=== PATIENT | female | born 1990 | race Two or more races ===

== ENCOUNTER 2018-08-19 14:33 | Emergency (ER) | payer MEDICARE, MEDICAID ==
[~2018-08-19] VITALS: Ht 170.2 cm; Wt 55.3 kg
[~2018-08-19 14:33] MED LIST: ALPRAZOLAM0.25 MG ORAL; KEFLEX500 MG ORAL
--- NOTE | 2018-08-19 14:45 | NUR ---
ED Nurse Note: Patient c/o chills, diarrhea "all day" and headache since yesterday. patient is alert awake ambulatory, breathing unlabored and even, skin is warm to touch.
[2018-08-19 15:04] VITALS: BP 111/72
[2018-08-19] MEDS ORDERED: Dicyclomine HCl 10mg/5ml oral soln ORAL ONE (15:15)
[2018-08-19 15:37] LABS: BASOPHILS % (AUTO) 2.3 % (0.0-2.0); EOSINOPHILS % (AUTO) 1.9 % (0.0-3.0); HEMATOCRIT 41.7 % (37.0-47.0); HEMOGLOBIN 14.4 G/DL (12.0-16.0); LYMPHOCYTES % (AUTO) 34.7 % (20.0-45.0); MEAN CORPUSCULAR VOLUME 87 FL (80-99); MONOCYTES % (AUTO) 12.5 % (1.0-10.0); NEUTROPHILS % (AUTO) 48.6 % (45.0-75.0); PLATELET COUNT 223 K/UL (150-450); RED CELL DISTRIBUTION WIDTH 14.9 % (11.6-14.8); WHITE BLOOD COUNT 4.2 K/UL (4.8-10.8)
[2018-08-19 15:46] LABS: ANION GAP 13 mmol/L (5-15); BLOOD UREA NITROGEN 10 mg/dL (7-18); CALCIUM 9.2 MG/DL (8.5-10.1); CARBON DIOXIDE 23 MMOL/L (21-32); CHLORIDE 106 MMOL/L (98-107); CREATININE 0.8 MG/DL (0.55-1.30); POTASSIUM 3.6 MMOL/L (3.5-5.1); SODIUM 142 MMOL/L (136-145)
[2018-08-19] MEDS ORDERED: Dicyclomine 10mg Cap ORAL ONE (16:15)
--- NOTE | 2018-08-19 16:16 | Emergency Room Report ---
History of Present Illness General Chief Complaint: Diarrhea Source: Patient Present Illness HPI 27 YO Female Pt. presents to the ED c/o multiple episodes of diarrhea and abdominal cramping since early this am. Pt. reports initially dark /black looking stool and now with reddish color. denies Pmhx. took Pepto-bismol TWINE WINDER. denies ETOH or NSAID use. reports symptoms occurred after eating a frozen meal. Denies nausea or vomiting. pt. reports chills, and feeling weak. Denies recent travel or ill contacts. reports no pain between episodes of diarrhea. She reports moderate gurgling in the lower abdomen prior to diarrhea bouts. denies ill contacts with similar symptoms. denies suspicion of . Denies dizziness, syncope, CP, palpitations or GARCES. Allergies: Coded Allergies: No Known Allergies (Unverified , 04/01/14) Patient History Past Medical History: see triage record Past Surgical History: none Pertinent Family History: none Last Menstrual Period: 03/2018- Now: No Reviewed Nursing Documentation: PMH: Agreed; PSxH: Agreed Nursing Documentation-PMH Past Medical History: No History, Except For Hx Cardiac Problems: No - Lupus, Hx Hypertension: No Hx Pacemaker: No Hx Asthma: No Hx COPD: No Hx Diabetes: No Hx Cancer: No Hx Gastrointestinal Problems: No Hx Dialysis: No History Of Psychiatric Problem: Yes - Schizophrenia Hx Neurological Problems: No Hx Cerebrovascular Accident: No Hx Seizures: No Review of Systems All Other Systems: negative except mentioned in HPI Physical Exam Vital Signs Date Time Temp Pulse Resp B/P (MAP) Pulse Ox O2 Delivery O2 Flow Rate FiO2 08/19/18 14:39 98.2 86 15 109/81 (90) 96 Room Air Sp02 EP Interpretation: reviewed, normal General Appearance: no apparent distress, alert, GCS 15, non-toxic, thin Head: normocephalic, atraumatic Eyes: bilateral eye normal inspection, bilateral eye PERRL ENT: hearing grossly normal, normal voice Neck: full range of motion Respiratory: lungs clear, normal breath sounds, speaking full sentences Cardiovascular #1: regular rate, rhythm Gastrointestinal: normal bowel sounds, non tender, soft, no peritonitis, non- distended, no guarding Rectal: heme positive stool Musculoskeletal: back normal, gait/station normal, normal range of motion, non- tender Neurologic: alert, oriented x3, responsive, motor strength/tone normal, sensory intact, speech normal, grossly normal Psychiatric: judgement/insight normal Lymphatic: no adenopathy Medical Decision Making PA Attestation Dr. Rodas is my supervising Physician whom patient management has been discussed with. Diagnostic Impression: Primary Impression: Diarrhea Qualified Codes: R19.7 - Diarrhea, unspecified ER Course 27 YO Female Pt. presents to the ED c/o multiple episodes of diarrhea and abdominal cramping since early this am. Pt. reports initially dark /black looking stool and now with reddish color. denies Pmhx. took Pepto-bismol TWINE WINDER. denies ETOH or NSAID use. reports symptoms occurred after eating a frozen meal. Denies nausea or vomiting. pt. reports chills, and feeling weak. Denies recent travel or ill contacts. reports no pain between episodes of diarrhea. She reports moderate gurgling in the lower abdomen prior to diarrhea bouts. denies ill contacts with similar symptoms. denies suspicion of . Denies dizziness, syncope, CP, palpitations or GARCES. Ddx considered but are not limited to GE, colitis,infectious colitis, acute appy , SBO, Cyclical Vomiting secondary to THC, Vital signs: pt. is afebrile, H&PE are most consistent with possible colitis, Heme positive stool. no evidence to suggest acute abdomen on physical exam. ORDERS: -Urine Hcg: negative -CBC: WNL -BMP: WNL -Stool Culture : Pending ED INTERVENTIONS: -1000 NS iv hydration, -Bentyl 10mg PO x 2 - Mylanta - Pepcid DISCHARGE: At this time pt. is stable for d/c to home. Will provide printed patient care instructions, and any necessary prescriptions. Care plan and follow up instructions have been discussed with the patient prior to discharge. Labs Test 08/19/18 15:17 White Blood Count 4.2 K/UL (4.8-10.8) Red Blood Count 4.80 M/UL (4.20-5.40) Hemoglobin 14.4 G/DL (12.0-16.0) Hematocrit 41.7 % (37.0-47.0) Mean Corpuscular Volume 87 FL (80-99) Mean Corpuscular Hemoglobin 29.9 PG (27.0-31.0) Mean Corpuscular Hemoglobin Concent 34.4 G/DL (32.0-36.0) Red Cell Distribution Width 14.9 % (11.6-14.8) Platelet Count 223 K/UL (150-450) Mean Platelet Volume 5.1 FL (6.5-10.1) Neutrophils (%) (Auto) 48.6 % (45.0-75.0) Lymphocytes (%) (Auto) 34.7 % (20.0-45.0) Monocytes (%) (Auto) 12.5 % (1.0-10.0) Eosinophils (%) (Auto) 1.9 % (0.0-3.0) Basophils (%) (Auto) 2.3 % (0.0-2.0) Urine HCG, Qualitative Negative (NEGATIVE) Sodium Level 142 MMOL/L (136-145) Potassium Level 3.6 MMOL/L (3.5-5.1) Chloride Level 106 MMOL/L (98-107) Carbon Dioxide Level 23 MMOL/L (21-32) Anion Gap 13 mmol/L (5-15) Blood Urea Nitrogen 10 mg/dL (7-18) Creatinine 0.8 MG/DL (0.55-1.30) Estimat Glomerular Filtration Rate > 60 mL/min (>60) Glucose Level 86 MG/DL (74-106) Calcium Level 9.2 MG/DL (8.5-10.1) Last Vital Signs Date Time Temp Pulse Resp B/P (MAP) Pulse Ox O2 Delivery O2 Flow Rate FiO2 08/19/18 15:04 98.2 81 16 111/72 98 Room Air Status: improved Disposition: HOME, SELF-CARE Condition: Stable Scripts Ranitidine Hcl* (ZANTAC*) 150 Mg Tablet 150 MG ORAL TWICE A DAY for 7 Days, #14 TAB Prov: Chely Galindo 08/19/18 Dicyclomine Hcl* (DICYCLOMINE HCL*) 10 Mg Capsule 10 MG ORAL QID for loose stools, #16 CAP Prov: Chely Galindo 08/19/18 Metronidazole* (FLAGYL*) 500 Mg Tablet 500 MG ORAL BID for 7 Days, #14 TAB 0 Refills Prov: Chely Galindo 08/19/18 Ciprofloxacin Hcl* (CIPROFLOXACIN HCL*) 500 Mg Tablet 500 MG ORAL EVERY 12 HOURS, #14 TAB 0 Refills Prov: Chely Galindo 08/19/18 Referrals: NOT CHOSEN IPA/MD,REFERRING (PCP) Departure Forms: Return to Work Return to Work Date: Aug 23, 2018 Return to Full Activity: Aug 23, 2018 Patient Instructions: Diarrhea, Adult Additional Instructions: Take medications as directed. Follow up with a Primary Care Provider in 3-5 days, even if your symptoms have resolved. --Please review list of primary care clinics, if you do not already have a primary care provider Return sooner to ED if new symptoms occur, or current symptoms become worse. - Please note that this Emergency Department Report was dictated using [employer] qa system specialist technology software, occasionally this can lead to erroneous entry secondary to interpretation by the dictation equipment. Chely Galindo Aug 19, 2018 16:16
[2018-08-19] MEDS ORDERED: CIPROFLOXACIN500 M2 ORAL (16:24)
[2018-08-19] MEDS ORDERED: RANITIDINE HCL150 MG ORAL (16:24)
[2018-08-19] MEDS ORDERED: DICYCLOMINE HCL10 MG ORAL (16:24)
[2018-08-19] MEDS ORDERED: METRONIDAZOLE500 MG ORAL (16:24)
[2018-08-19 16:45] VITALS: BP 111/72
--- NOTE | 2018-08-19 16:45 | NUR ---
ER DISCHARGE NOTE: Patient is cleared to be discharged per [facility], pt is aox4, on room air, with stable vital signs. pt was given dc and prescription instructions, pt was able to verbalize understanding, pt id band and iv site removed without complications. pt is able to ambulate with steady gait. pt took all belongings.
== END 2018-08-19 16:45 | disposition home or self-care (01) ==
LOC: EMR 14:56
DX: R19.7 Diarrhea, unspecified (principal); F20.9 Schizophrenia, unspecified
CPT/HCPCS: 36415; 80048; 81025; 85025; 87045; 96360; 99284

== ENCOUNTER 2018-09-12 14:04 | Emergency (ER) | payer MEDICARE, MEDICAID ==
[~2018-09-12] VITALS: Ht 167.6 cm; Wt 54.4 kg
[~2018-09-12 14:04] MED LIST changes: +CIPROFLOXACIN500 M2 ORAL; +DICYCLOMINE HCL10 MG ORAL; +METRONIDAZOLE500 MG ORAL; +RANITIDINE HCL150 MG ORAL
[2018-09-12] MEDS ORDERED: NKM (14:12)
[2018-09-12] MEDS ORDERED: Metoclopramide 10mg/2ml Inj IVP ONE (14:15)
--- NOTE | 2018-09-12 14:15 | Emergency Room Report ---
History of Present Illness General Chief Complaint: Diarrhea Source: Patient Present Illness HPI 27-year-old female history of lupus in remission presents with diarrhea x3 days for episodes a day, watery nature, no abdominal pain, severity mild, no aggravating or alleviating factors, no nausea no vomiting, no chest pain, no shortness of breath, no fever/chills, patient presents for evaluation. She denies any recent travel, any recent antibiotic use. No blood in stool Allergies: Coded Allergies: No Known Allergies (Unverified , 04/01/14) Patient History Past Medical History: see triage record Now: No Reviewed Nursing Documentation: PMH: Agreed; PSxH: Agreed Nursing Documentation-PMH Hx Cardiac Problems: No - Lupus, Hx Hypertension: No Hx Pacemaker: No Hx Asthma: No Hx COPD: No Hx Diabetes: No Hx Cancer: No Hx Gastrointestinal Problems: No Hx Dialysis: No Hx Neurological Problems: No Hx Cerebrovascular Accident: No Hx Seizures: No Review of Systems Gastrointestinal: Reports: diarrhea; Denies: abdominal pain, nausea, vomiting All Other Systems: negative except mentioned in HPI Physical Exam Vital Signs Date Time Temp Pulse Resp B/P (MAP) Pulse Ox O2 Delivery O2 Flow Rate FiO2 09/12/18 14:10 98.2 88 18 110/81 (91) 98 Room Air Sp02 EP Interpretation: reviewed, normal General Appearance: well appearing, no apparent distress, alert Head: normocephalic, atraumatic Eyes: bilateral eye PERRL, bilateral eye EOMI ENT: uvula midline, moist mucus membranes Neck: supple, thyroid normal, supple/symm/no masses Respiratory: lungs clear, no respiratory distress, no retraction, no accessory muscle use Cardiovascular #1: normal peripheral pulses, regular rate, rhythm, no edema, no gallop, no murmur Gastrointestinal: non tender, soft, no guarding, no rebound Musculoskeletal: normal inspection Neurologic: alert, oriented x3 Psychiatric: mood/affect normal Skin: no rash, warm/dry Medical Decision Making Diagnostic Impression: Primary Impression: Diarrhea ER Course 27-year-old female presents with diarrhea x3 days, no aggravating leaving factors, patient with unremarkable abdominal exam, on the differential includes appendicitis, gastroenteritis, colitis, labs nonfocal, patient given strict abdominal return precautions, for appendicitis. Patient is tolerating p.o., disposition home with return precautions Laboratory Tests Test 09/12/18 14:29 White Blood Count 5.6 K/UL (4.8-10.8) Red Blood Count 4.39 M/UL (4.20-5.40) Hemoglobin 13.5 G/DL (12.0-16.0) Hematocrit 39.2 % (37.0-47.0) Mean Corpuscular Volume 89 FL (80-99) Mean Corpuscular Hemoglobin 30.8 PG (27.0-31.0) Mean Corpuscular Hemoglobin Concent 34.5 G/DL (32.0-36.0) Red Cell Distribution Width 11.4 % (11.6-14.8) L Platelet Count 211 K/UL (150-450) Mean Platelet Volume 5.6 FL (6.5-10.1) L Neutrophils (%) (Auto) 63.7 % (45.0-75.0) Lymphocytes (%) (Auto) 18.4 % (20.0-45.0) L Monocytes (%) (Auto) 11.4 % (1.0-10.0) H Eosinophils (%) (Auto) 5.0 % (0.0-3.0) H Basophils (%) (Auto) 1.4 % (0.0-2.0) Urine Color Pale yellow Urine Appearance Clear Urine pH 5 (4.5-8.0) Urine Specific [place] 1.005 (1.005-1.035) Urine Protein Negative (NEGATIVE) Urine Glucose (UA) Negative (NEGATIVE) Urine Ketones Negative (NEGATIVE) Urine Blood Negative (NEGATIVE) Urine Nitrite Negative (NEGATIVE) Urine Bilirubin Negative (NEGATIVE) Urine Urobilinogen Normal MG/DL (0.0-1.0) Urine Leukocyte Esterase Negative (NEGATIVE) Urine HCG, Qualitative Negative (NEGATIVE) Sodium Level 138 MMOL/L (136-145) Potassium Level 4.1 MMOL/L (3.5-5.1) Chloride Level 103 MMOL/L (98-107) Carbon Dioxide Level 28 MMOL/L (21-32) Anion Gap 7 mmol/L (5-15) Blood Urea Nitrogen 6 mg/dL (7-18) L Creatinine 0.9 MG/DL (0.55-1.30) Estimate Glomerular Filtration Rate > 60 mL/min (>60) Glucose Level 65 MG/DL (74-106) L Calcium Level 9.3 MG/DL (8.5-10.1) Total Bilirubin 0.4 MG/DL (0.2-1.0) Aspartate Amino Transferase (AST) 12 U/L (15-37) L Alanine Aminotransferase (ALT) 9 U/L (12-78) L Alkaline Phosphatase 48 U/L (46-116) Total Protein 8.1 G/DL (6.4-8.2) Albumin 4.1 G/DL (3.4-5.0) Globulin 4.0 g/dL Albumin/Globulin Ratio 1.0 (1.0-2.7) Lipase 240 U/L (73-393) Human Chorionic Gonadotropin, Quant 1 mIU/mL (1-6) Last Vital Signs Date Time Temp Pulse Resp B/P (MAP) Pulse Ox O2 Delivery O2 Flow Rate FiO2 09/12/18 14:10 98.2 88 18 110/81 (91) 98 Room Air Disposition: HOME, SELF-CARE Scripts L.acidoph & Paracasei,B.lactis (Probiotic) 1 Each Capsule 1 EACH PO DAILY, #14 CAP Prov: Mario Dunne MD 09/12/18 Patient Instructions: Diarrhea, Adult Additional Instructions: The patient was provided with discharge instructions, notified to follow-up with a primary care doctor and or specialist in the next 24-48 hours, and to return to the ED if they have worsening of their symptoms. Please note that this report is being documented using [employer] technology. This can lead to erroneous entry secondary to incorrect interpretation by the dictating instrument. Mario Dunne MD Sep 12, 2018 14:15
[2018-09-12 14:30] VITALS: BP 110/81
[2018-09-12] MEDS ORDERED: PROBIOTIC1 EAC6 PO (14:30)
--- NOTE | 2018-09-12 14:30 | NUR ---
ED Nurse Note: pt walked in due to diarrhe x 3 days, denies abdominal pain, pt denies wating new meals. pt seen by alfonso. will continue to monitor.
--- NOTE | 2018-09-12 14:42 | NUR ---
ED Nurse Note: iv stablished on pt left ac, blood drawn, pt able to give urine sample and was sent to lab. iv reglan given, ivf started. will continue to monitor
[2018-09-12 14:43] LABS: BASOPHILS % (AUTO) 1.4 % (0.0-2.0); HEMATOCRIT 39.2 % (37.0-47.0); HEMOGLOBIN 13.5 G/DL (12.0-16.0); LYMPHOCYTES % (AUTO) 18.4 % (20.0-45.0); MEAN CORPUSCULAR VOLUME 89 FL (80-99); MONOCYTES % (AUTO) 11.4 % (1.0-10.0); NEUTROPHILS % (AUTO) 63.7 % (45.0-75.0); PLATELET COUNT 211 K/UL (150-450); RED BLOOD COUNT 4.39 M/UL (4.20-5.40); RED CELL DISTRIBUTION WIDTH 11.4 % (11.6-14.8); WHITE BLOOD COUNT 5.6 K/UL (4.8-10.8)
[2018-09-12 14:46] LABS: APPEARANCE,URINE CLEAR; BILIRUBIN, URINE NEGATIVE (NEGATIVE); COLOR,URINE PALE YELLOW; GLUCOSE, URINE (UA) NEGATIVE (NEGATIVE); KETONES,URINE NEGATIVE (NEGATIVE); LEUKOCYTE ESTERASE ,URINE NEGATIVE (NEGATIVE); NITRITE,URINE NEGATIVE (NEGATIVE); PH,URINE 5 (4.5-8.0); PROTEIN,URINE NEGATIVE (NEGATIVE); UROBILINOGEN,URINE NORMAL MG/DL (0.0-1.0)
[2018-09-12 14:53] LABS: ANION GAP 7 mmol/L (5-15); BLOOD UREA NITROGEN 6 mg/dL (7-18); CALCIUM 9.3 MG/DL (8.5-10.1); CARBON DIOXIDE 28 MMOL/L (21-32); CHLORIDE 103 MMOL/L (98-107); CREATININE 0.9 MG/DL (0.55-1.30); POTASSIUM 4.1 MMOL/L (3.5-5.1); SODIUM 138 MMOL/L (136-145)
[2018-09-12 14:57] LABS: ALANINE AMINOTRANSFERASE 9 U/L (12-78); ALBUMIN 4.1 G/DL (3.4-5.0); ALKALINE PHOSPHATASE 48 U/L (46-116); ASPARTATE AMINO TRANSFERASE 12 U/L (15-37); BILIRUBIN,TOTAL 0.4 MG/DL (0.2-1.0)
[2018-09-12 15:15] VITALS: BP 110/70
== END 2018-09-12 15:15 | disposition home or self-care (01) ==
LOC: EMR 14:44
DX: R19.7 Diarrhea, unspecified (principal); M32.9 Systemic lupus erythematosus, unspecified
CPT/HCPCS: 36415; 80053; 81003; 81025; 83690; 84702; 85025; 96361; 96374; 99284; J2765

== ENCOUNTER 2019-08-05 23:01 | Inpatient (IN) | payer MEDICARE, MEDICAID ==
[~2019-08-05] VITALS: Ht 167.6 cm; Wt 56.7 kg
[~2019-08-05 23:01] MED LIST changes: +NKM; +PROBIOTIC1 EAC6 PO
[2019-08-05 23:27] VITALS: BP 124/82
--- NOTE | 2019-08-05 23:40 | Emergency Room Report ---
History of Present Illness General Chief Complaint: General Complaint Source: Patient Present Illness HPI Disclaimer: Please note that this report is being documented using [employer] technology. This can lead to erroneous entry secondary to incorrect interpretation by the dictating instrument. HPI: 20-year-old female with history of anxiety presents for evaluation of multiple complaints. She is concerned she may have high levels of vitamin A, that she may be a new onset diabetic or that she may have high cholesterol levels. She states she eats 2 eggs every other day and is concerned this may be too much. She originally presented complaining of tremulousness in the upper and lower extremities. Denies fever or chills. Denies cough, vomiting, diarrhea. She does not take vitamin A supplements or have a history of diabetes or hypercholesterolemia. She states there is a family history of both and is concerned. She originally denied a history of anxiety and stated she was not taking benzodiazepines though chart review states she she was previously prescribed Xanax. She states she does not recall this. Denies excessive caffeine intake. States she is hydrated and eating well otherwise. Denies changes in sleep pattern, depression, drug use, alcohol use, tobacco use or stimulant use. States this tapering she also started after eating a pear earlier today but has eaten pear multiple times and has no known food allergies. PMH: Anxiety PSH: Reviewed Allergies: Denies Social Hx: Denies alcohol, tobacco or drug use Allergies: Coded Allergies: No Known Allergies (Unverified , 04/01/14) COVID-19 Screening Contact w/high risk pt: No Recent Travel to affected area: No Experienced COVID-19 symptoms?: No COVID-19 Testing performed TERMITE CONTROL REPRESENTATIVE: No Patient History Last Menstrual Period: now Now: No Nursing Documentation-PMH Hx Cardiac Problems: No (Lupus, ) Hx Hypertension: No Hx Pacemaker: No Hx Asthma: No Hx COPD: No Hx Diabetes: Yes Hx Cancer: No Hx Gastrointestinal Problems: No Hx Dialysis: No Hx Neurological Problems: No Hx Cerebrovascular Accident: No Hx Seizures: No Review of Systems All Other Systems: negative except mentioned in HPI Physical Exam Vital Signs Date Time Temp Pulse Resp B/P (MAP) Pulse Ox O2 Delivery O2 Flow Rate FiO2 08/05/19 23:16 97.9 85 16 124/82 (96) 98 Room Air General: Awake and alert, anxious appearing, intermittent tremors HEENT: NC/AT. EOMI. anicteric sclera. No scleral injection. Pupils are 4 mm and reactive. Cardiovascular: RRR. S1 and S2 normal. No murmur appreciated Resp: Normal work of breathing. No cough, wheezing or crackles appreciated Skin: Intact. No abrasions, laceration or rash over the exposed skin MSK: Normal tone and bulk. Moving all extremities. No obvious deformity. Neuro: Awake and alert. Mentating appropriately. Medical Decision Making Diagnostic Impression: Primary Impression: Hyponatremia Additional Impression: Hypokalemia ER Course 28-year-old female presents for evaluation of tremors as well as concern for new onset diabetes, hypercholesterolemia and vitamin a toxicity secondary to her diet. Patient arrives with stable vital signs. She has intermittent tremors in the upper and lower extremities, is afebrile otherwise well- appearing though it seems to be a poor historian. Differential includes was not limited to dehydration, anxiety, malnutrition, anemia, drug use to name a few. Started metabolic infectious work-up and provide oral Ativan to help with tremors. 0100: Patient found to have critically low sodium of 117. Kidney function within normal limits. Other labs largely within normal limits aside from slightly low potassium. On further questioning the patient states she drinks in excess amount of water daily stating that she believes she was dehydrated. She denies prior problems with electrolyte abnormalities or kidney issues. 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 Will send urine electrolytes, urine creatinine, TSH and cortisol levels. Believe she would benefit from psychiatric consult as well. Discussed with admitting physician, Dr Scott. IV fluids for slow sodium correction are running. Laboratory Tests Test 08/06/19 00:00 White Blood Count 5.6 K/UL (4.8-10.8) Red Blood Count 3.73 M/UL (4.20-5.40) L Hemoglobin 11.5 G/DL (12.0-16.0) L Hematocrit 32.5 % (37.0-47.0) L Mean Corpuscular Volume 87 FL (80-99) Mean Corpuscular Hemoglobin 31.0 PG (27.0-31.0) Mean Corpuscular Hemoglobin Concent 35.5 G/DL (32.0-36.0) Red Cell Distribution Width 10.9 % (11.6-14.8) L Platelet Count 216 K/UL (150-450) Mean Platelet Volume 6.7 FL (6.5-10.1) Neutrophils (%) (Auto) 77.6 % (45.0-75.0) H Lymphocytes (%) (Auto) 15.6 % (20.0-45.0) L Monocytes (%) (Auto) 5.4 % (1.0-10.0) Eosinophils (%) (Auto) 0.3 % (0.0-3.0) Basophils (%) (Auto) 1.0 % (0.0-2.0) Urine Color Pale yellow Urine Appearance Clear Urine pH 5 (4.5-8.0) Urine Specific [place] 1.005 (1.005-1.035) Urine Protein Negative (NEGATIVE) Urine Glucose (UA) Negative (NEGATIVE) Urine Ketones 3+ (NEGATIVE) H Urine Blood 5+ (NEGATIVE) H Urine Nitrite Negative (NEGATIVE) Urine Bilirubin Negative (NEGATIVE) Urine Urobilinogen Normal MG/DL (0.0-1.0) Urine Leukocyte Esterase Negative (NEGATIVE) Urine RBC 2-4 /HPF (0 - 2) H Urine WBC 0-2 /HPF (0 - 2) Urine Squamous Epithelial Cells Occasional /LPF Urine Bacteria Occasional /HPF (NONE) Urine Osmolality Pending Urine Random Sodium < 20 mmol/L (20-110) L Urine Creatinine 14.4 MG/DL (30.0-125.0) L Sodium Level 117 MMOL/L (136-145) *L Potassium Level 3.2 MMOL/L (3.5-5.1) L Chloride Level 84 MMOL/L (98-107) L Carbon Dioxide Level 21 MMOL/L (21-32) Anion Gap 12 mmol/L (5-15) Blood Urea Nitrogen 3 mg/dL (7-18) L Creatinine 0.7 MG/DL (0.55-1.30) Estimated Glomerular Filtration Rate > 60 mL/min (>60) Glucose Level 124 MG/DL (74-106) H Calcium Level 7.8 MG/DL (8.5-10.1) L Phosphorus Level Pending Magnesium Level Pending Thyroid Stimulating Hormone (TSH) Pending Human Chorionic Gonadotropin, Qual Negative (NEGATIVE) Urine Opiates Screen Negative (NEGATIVE) Urine Barbiturates Screen Negative (NEGATIVE) Phencyclidine (PCP) Screen Negative (NEGATIVE) Urine Amphetamines Screen Negative (NEGATIVE) Urine Benzodiazepines Screen Negative (NEGATIVE) Urine Cocaine Screen Negative (NEGATIVE) Urine Marijuana (THC) Screen Negative (NEGATIVE) EKG Diagnostic Results EKG Time: 00:23 Rate: normal Rhythm: NSR ST Segments: no acute changes Other Impression Sinus rhythm, borderline right axis, normal intervals, no ST segment changes. Rhythm Strip Diag. Results Rhythm Strip Time: 00:23 EP Interpretation: yes Rate: 70s Rhythm: NSR, no PVC's, no ectopy Last Vital Signs Date Time Temp Pulse Resp B/P (MAP) Pulse Ox O2 Delivery O2 Flow Rate FiO2 08/05/19 23:27 97.9 16 124/82 98 Room Air 08/05/19 23:27 85 Disposition: HOME, SELF-CARE Condition: Stable Referrals: NOT CHOSEN IPA/,REFERRING (PCP) Malik Paul MD Aug 05, 2019 23:40
[2019-08-05] MEDS ORDERED: LORazepam 1mg tab ORAL ONE (23:45)
[2019-08-06 00:16] LABS: APPEARANCE,URINE CLEAR; BILIRUBIN, URINE NEGATIVE (NEGATIVE); COLOR,URINE PALE YELLOW; GLUCOSE, URINE (UA) NEGATIVE (NEGATIVE); KETONES,URINE 3+ (NEGATIVE); LEUKOCYTE ESTERASE ,URINE NEGATIVE (NEGATIVE); NITRITE,URINE NEGATIVE (NEGATIVE); PH,URINE 5 (4.5-8.0); PROTEIN,URINE NEGATIVE (NEGATIVE); UROBILINOGEN,URINE NORMAL MG/DL (0.0-1.0)
[2019-08-06 00:19] LABS: EOSINOPHILS % (AUTO) 0.3 % (0.0-3.0); HEMATOCRIT 32.5 % (37.0-47.0); HEMOGLOBIN 11.5 G/DL (12.0-16.0); LYMPHOCYTES % (AUTO) 15.6 % (20.0-45.0); MEAN CORPUSCULAR VOLUME 87 FL (80-99); MONOCYTES % (AUTO) 5.4 % (1.0-10.0); NEUTROPHILS % (AUTO) 77.6 % (45.0-75.0); PLATELET COUNT 216 K/UL (150-450); RED BLOOD COUNT 3.73 M/UL (4.20-5.40); RED CELL DISTRIBUTION WIDTH 10.9 % (11.6-14.8); WHITE BLOOD COUNT 5.6 K/UL (4.8-10.8)
[2019-08-06 00:32] LABS: ANION GAP 12 mmol/L (5-15); BLOOD UREA NITROGEN 3 mg/dL (7-18); CALCIUM 7.8 MG/DL (8.5-10.1); CARBON DIOXIDE 21 MMOL/L (21-32); CHLORIDE 84 MMOL/L (98-107); CREATININE 0.7 MG/DL (0.55-1.30); POTASSIUM 3.2 MMOL/L (3.5-5.1)
[2019-08-06 00:33] LABS: SODIUM 117 MMOL/L (136-145)
[2019-08-06 01:25] LABS: PHOSPHORUS 2.5 MG/DL (2.5-4.9)
[2019-08-06 02:00] VITALS: BP 121/78
[2019-08-06 08:00] VITALS: BP 148/96
[2019-08-06] MEDS ORDERED: Pantoprazole Inj IVP SCH (09:00)
[2019-08-06] MEDS ORDERED: Potassium Phosphate 20 MM in NS 275 ML IV ONE (09:00)
[2019-08-06 09:07] LABS: ALANINE AMINOTRANSFERASE 14 U/L (12-78); ALBUMIN 3.7 G/DL (3.4-5.0); ALBUMIN/GLOBULIN RATIO 1.3 (1.0-2.7); ALKALINE PHOSPHATASE 27 U/L (46-116); ANION GAP 7 mmol/L (5-15); ASPARTATE AMINO TRANSFERASE 17 U/L (15-37); BILIRUBIN,TOTAL 0.6 MG/DL (0.2-1.0); BLOOD UREA NITROGEN 3 mg/dL (7-18); CALCIUM 8.3 MG/DL (8.5-10.1); CARBON DIOXIDE 27 MMOL/L (21-32); CHLORIDE 107 MMOL/L (98-107); CHOLESTEROL 141 MG/DL (< 200); CREATININE 0.7 MG/DL (0.55-1.30); GAMMA GLUTAMYL TRANSPEPTIDASE 11 U/L (5-85); HDL CHOLESTEROL 64 MG/DL (40-60); PHOSPHORUS 3.9 MG/DL (2.5-4.9); POTASSIUM 3.9 MMOL/L (3.5-5.1); SODIUM 141 MMOL/L (136-145); TRIGLYCERIDES 17 MG/DL (30-150)
--- NOTE | 2019-08-06 09:12 | History & Physical ---
History and Physical History & Physicial seen and examined. Full Dictation completed on 910 hours Bruce Scott MD Aug 06, 2019 09:12
--- NOTE | 2019-08-06 09:15 | General Progress Note ---
Assessment/Plan Assessment/Plan: Full Dictation in progress A/P: 1- Acute Hyponatremia 2- Psych 3- Cellulitis of left hand Plan: DC IVF start regular diet start Keflex Subjective Allergies: Coded Allergies: No Known Allergies (Unverified , 04/01/14) Objective Last 24 Hour Vital Signs Date Time Temp Pulse Resp B/P (MAP) Pulse Ox O2 Delivery O2 Flow Rate FiO2 08/06/19 08:00 98.9 61 20 148/96 (113) 95 08/06/19 04:18 Room Air 08/06/19 03:30 97.9 78 16 124/82 98 Room Air 08/06/19 02:00 98.1 67 18 121/78 99 Room Air 08/05/19 23:27 97.9 16 124/82 98 Room Air 08/05/19 23:27 85 16 Room Air 08/05/19 23:16 97.9 85 16 124/82 (96) 98 Room Air Intake and Output 08/05/19 08/06/19 19:00 07:00 # Voids 2 Laboratory Tests 08/06/19 00:00: White Blood Count 5.6, Red Blood Count 3.73L, Hemoglobin 11.5L, Hematocrit 32.5L , Mean Corpuscular Volume 87, Mean Corpuscular Hemoglobin 31.0, Mean Corpuscular Hemoglobin Concent 35.5, Red Cell Distribution Width 10.9L, Platelet Count 216, Mean Platelet Volume 6.7, Neutrophils (%) (Auto) 77.6H, Lymphocytes (%) (Auto) 15.6L, Monocytes (%) (Auto) 5.4, Eosinophils (%) (Auto) 0.3, Basophils (%) (Auto) 1.0, Urine Color Pale yellow, Urine Appearance Clear, Urine pH 5, Urine Specific [place] 1.005, Urine Protein Negative, Urine Glucose (UA) Negative, Urine Ketones 3+H, Urine Blood 5+H, Urine Nitrite Negative, Urine Bilirubin Negative, Urine Urobilinogen Normal, Urine Leukocyte Esterase Negative, Urine RBC 2-4H, Urine WBC 0-2, Urine Squamous Epithelial Cells Occasional, Urine Bacteria Occasional, Urine Osmolality 85L, Urine Random Sodium < 20L, Urine Creatinine 14.4L, Sodium Level 117*L, Potassium Level 3.2L, Chloride Level 84L, Carbon Dioxide Level 21, Anion Gap 12, Blood Urea Nitrogen 3L, Creatinine 0.7, Estimat Glomerular Filtration Rate > 60, Glucose Level 124H , Calcium Level 7.8L, Phosphorus Level 2.5, Magnesium Level 1.5L, Thyroid Stimulating Hormone (TSH) 1.549, Human Chorionic Gonadotropin, Qual Negative, Urine Opiates Screen Negative, Urine Barbiturates Screen Negative, Phencyclidine (PCP) Screen Negative, Urine Amphetamines Screen Negative, Urine Benzodiazepines Screen Negative, Urine Cocaine Screen Negative, Urine Marijuana (THC) Screen Negative 08/06/19 01:10: Urine Random Phosphorus [Pending], Cortisol [Pending] 08/06/19 08:30: Sodium Level 141#, Potassium Level 3.9, Chloride Level 107, Carbon Dioxide Level 27, Anion Gap 7, Blood Urea Nitrogen 3L, Creatinine 0.7, Estimat Glomerular Filtration Rate > 60, Glucose Level 57L, Calcium Level 8.3L, Phosphorus Level 3.9, Magnesium Level 2.1, Thyroid Stimulating Hormone (TSH) 2.273, Osmolality [Pending], Uric Acid 3.1, Total Bilirubin 0.6, Gamma Glutamyl Transpeptidase 11, Aspartate Amino Transf (AST/SGOT) 17, Alanine Aminotransferase (ALT/SGPT) 14, Alkaline Phosphatase 27L, Total Protein 6.5, Albumin 3.7, Globulin 2.8, Albumin/Globulin Ratio 1.3, Triglycerides Level 17L, Cholesterol Level 141, LDL Cholesterol 71, HDL Cholesterol 64H, Cholesterol/HDL Ratio 2.2L Height (Feet): 5 Height (Inches): 6.00 Weight (Pounds): 125 Bruce Scott MD Aug 06, 2019 09:15
[2019-08-06] MEDS: Enoxaparin 40mg Inj SUBQ SCH (09:23)
[2019-08-06] MEDS: Cephalexin 500mg cap ORAL SCH ×4 (10:25→20:38)
--- NOTE | 2019-08-06 11:42 | Consultation ---
Consult Note Consult Note I am asked to evaluate the patient at the request of Dr. Scott, for hyponatremia and abnormal electrolytes. Patient was seen in room 314. Patient interviewed. Laboratory data reviewed. Patient states the only medication she is taking is Abilify for her schizophrenia and no other medication. Patient admits to have been drinking a lot of water recently thinking that she may be dehydrated. Emergency room note: HPI: 20-year-old female with history of anxiety presents for evaluation of multiple complaints. She is concerned she may have high levels of vitamin A, that she may be a new onset diabetic or that she may have high cholesterol levels. She states she eats 2 eggs every other day and is concerned this may be too much. She originally presented complaining of tremulousness in the upper and lower extremities. Denies fever or chills. Denies cough, vomiting, diarrhea. She does not take vitamin A supplements or have a history of diabetes or hypercholesterolemia. She states there is a family history of both and is concerned. She originally denied a history of anxiety and stated she was not taking benzodiazepines though chart review states she she was previously prescribed Xanax. She states she does not recall this. Denies excessive caffeine intake. States she is hydrated and eating well otherwise. Denies changes in sleep pattern, depression, drug use, alcohol use, tobacco use or stimulant use. States this tapering she also started after eating a pear earlier today but has eaten pear multiple times and has no known food allergies. PMH: Anxiety, patient also claims to have history of schizophrenia and diagnosed with lupus Allergies: Denies COVID-19 Screening Contact w/high risk pt: No Recent Travel to affected area: No Experienced COVID-19 symptoms?: No COVID-19 Testing performed ABALONE DIVER: No Last Menstrual Period: now Now: No Hx Cardiac Problems: No - Lupus, Hx Diabetes: Yes . Assessment/Plan Hyponatremia, serum sodium of 117 on admission, now corrected on saline infusion. Low phosphorus, low magnesium History of psychiatric disease schizophrenia on Abilify as per patient Patient thinks that she is diabetic and also have high cholesterol Suggestions: Keep electrolytes and blood chemistries in check Will check lipid panel and hemoglobin A1c Anemia work-up Continue per PMD and psychiatry. Liam Stover MD Aug 06, 2019 11:42
[2019-08-06 12:00] VITALS: BP 99/62
[2019-08-06] MEDS: Docusate 100mg cap ORAL SCH ×3 (13:00→18:00)
--- NOTE | 2019-08-06 13:45 | History and Physical Report ---
DATE OF ADMISSION: 08/06/2019 SOURCE OF INFORMATION: The patient and EMR. HISTORY OF PRESENT ILLNESS: The patient is a 28-year-old female with a history of psychiatric problem, who presented with worsening of the fatigue and nausea and dizziness. The patient reported drinking plenty of water for unknown reason. Denies any fever or chills. Denies any nausea or vomitus. PAST MEDICAL AND SURGICAL HISTORY: Schizophrenia, otherwise denies. SOCIAL HISTORY: The patient denies history of illicit drug abuse, smoking, or alcohol abuse. MEDICATIONS: Current hospital medications including Keflex, Lovenox. PHYSICAL EXAMINATION: VITAL SIGNS: Blood pressure of 120/80, temperature 98.2, pulse oximetry 98% on room air, pulse rate 98. HEAD AND NECK: Atraumatic and normocephalic. CHEST: Clear to auscultation. HEART: S1, S2. Regular rate and rhythm. ABDOMEN: Soft. No organomegaly. MUSCULOSKELETAL: No gross focal motor deficit. NEUROLOGY: The patient is awake, alert, and oriented x3. LABORATORY DATA: Dated August 06, 2019, shows sodium 117, potassium 3.2, BUN 12, creatinine 0.7, magnesium 1.5. TSH 1.5. HCG negative. ASSESSMENT: 1. Acute metabolic encephalopathy. 2. Hyponatremia. 3. Hypokalemia. 4. Psychiatric disorder. 5. Abnormal blood sugar. 6. Hematuria. 7. GI and DVT prophylaxis. PLAN OF CARE: We will continue with the normal saline. Nephrology consulted. Psychiatry consulted. Time of this dictation does not reflect the actual time of encounter. Bruce Scott M.D. DR: AUBREY JOB#: [id number] CC:
[2019-08-06 14:17] LABS: ANION GAP 7 mmol/L (5-15); BLOOD UREA NITROGEN 6 mg/dL (7-18); CALCIUM 8.4 MG/DL (8.5-10.1); CARBON DIOXIDE 27 MMOL/L (21-32); CHLORIDE 106 MMOL/L (98-107); CREATININE 0.8 MG/DL (0.55-1.30); POTASSIUM 4.6 MMOL/L (3.5-5.1); SODIUM 140 MMOL/L (136-145)
[2019-08-06 16:00] VITALS: BP 111/71
[2019-08-06 20:00] VITALS: BP 99/62
[2019-08-06] MEDS ORDERED: Tubing IV Secondary IV ONE (21:37)
[2019-08-07] VITALS: BP_SYST 126; BP_SYST 129; BP_DIAS 79
[2019-08-07 04:00] VITALS: BP 102/67
[2019-08-07 05:34] LABS: BASOPHILS % (AUTO) 1.9 % (0.0-2.0); HEMATOCRIT 36.4 % (37.0-47.0); HEMOGLOBIN 12.3 G/DL (12.0-16.0); LYMPHOCYTES % (AUTO) 38.1 % (20.0-45.0); MEAN CORPUSCULAR VOLUME 90 FL (80-99); MONOCYTES % (AUTO) 9.3 % (1.0-10.0); NEUTROPHILS % (AUTO) 48.7 % (45.0-75.0); PLATELET COUNT 248 K/UL (150-450); RED BLOOD COUNT 4.03 M/UL (4.20-5.40); RED CELL DISTRIBUTION WIDTH 11.9 % (11.6-14.8); WHITE BLOOD COUNT 6.2 K/UL (4.8-10.8)
[2019-08-07 05:52] LABS: % IRON SATURATION 23 % (15-50); IRON 63 ug/dL (50-175); TOTAL IRON BINDING CAPACITY 273 ug/dL (250-450)
[2019-08-07 06:01] LABS: ALANINE AMINOTRANSFERASE 11 U/L (12-78); ALBUMIN/GLOBULIN RATIO 1.3 (1.0-2.7); ALKALINE PHOSPHATASE 32 U/L (46-116); ANION GAP 8 mmol/L (5-15); ASPARTATE AMINO TRANSFERASE 12 U/L (15-37); BILIRUBIN,TOTAL 0.5 MG/DL (0.2-1.0); BLOOD UREA NITROGEN 8 mg/dL (7-18); CALCIUM 8.6 MG/DL (8.5-10.1); CARBON DIOXIDE 26 MMOL/L (21-32); CHLORIDE 102 MMOL/L (98-107); CHOLESTEROL 151 MG/DL (< 200); CREATININE 0.8 MG/DL (0.55-1.30); HDL CHOLESTEROL 66 MG/DL (40-60); SODIUM 136 MMOL/L (136-145); TRIGLYCERIDES 22 MG/DL (30-150)
[2019-08-07 06:07] LABS: FERRITIN 44 NG/ML (8-388)
[2019-08-07 08:00] VITALS: BP 103/73
[2019-08-07] MEDS: Docusate 100mg cap ORAL SCH ×2 (09:00→13:00)
[2019-08-07] MEDS ORDERED: ARIPiprazole 10mg tab ORAL SCH (09:00)
[2019-08-07] MEDS: Cephalexin 500mg cap ORAL SCH ×2 (09:00→13:00)
[2019-08-07] MEDS: Enoxaparin 40mg Inj SUBQ SCH (09:00)
--- NOTE | 2019-08-07 11:12 | General Progress Note ---
Assessment/Plan Assessment/Plan: S: I am ok O: seems comfortable. PHYSICAL EXAMINATION: HEAD AND NECK: Atraumatic and normocephalic. CHEST: Clear to auscultation. HEART: S1, S2. Regular rate and rhythm. ABDOMEN: Soft. No organomegaly. MUSCULOSKELETAL: No gross focal motor deficit. NEUROLOGY: The patient is awake, alert, and oriented x3. LABORATORY DATA: Dated August 07, 2019, reviewed ASSESSMENT: 1. Acute metabolic encephalopathy.Resovled 2. Hyponatremia. 3. Hypokalemia. 4. Psychiatric disorder. 5. Abnormal blood sugar. 6. Hematuria. 7. GI and DVT prophylaxis. PLAN OF CARE: advised for o/p Fu with PCP . she agreed Subjective Allergies: Coded Allergies: No Known Allergies (Unverified , 04/01/14) Objective Last 24 Hour Vital Signs Date Time Temp Pulse Resp B/P (MAP) Pulse Ox O2 Delivery O2 Flow Rate FiO2 08/07/19 08:00 98.0 80 20 103/73 (83) 97 08/07/19 04:00 98.3 80 17 102/67 (79) 96 08/07/19 00:00 99.5 81 18 126/79 (95) 97 08/06/19 21:00 Room Air 08/06/19 20:00 99.2 84 18 99/62 (74) 96 08/06/19 17:15 Room Air 08/06/19 16:00 98.5 80 19 111/71 (84) 97 08/06/19 12:00 98.2 69 20 99/62 (74) 98 Intake and Output 08/06/19 08/07/19 19:00 07:00 Intake Total 2760 ml 720 ml Balance 2760 ml 720 ml Intake Oral 2560 ml 720 ml IV Total 200 ml # Voids 4 2 # Bowel Movements 2 1 Laboratory Tests 08/06/19 13:54: Sodium Level 140, Potassium Level 4.6, Chloride Level 106, Carbon Dioxide Level 27, Anion Gap 7, Blood Urea Nitrogen 6L, Creatinine 0.8, Estimat Glomerular Filtration Rate > 60, Glucose Level 63L, Calcium Level 8.4L 08/07/19 05:10: Sodium Level 136, Potassium Level 4.0, Chloride Level 102, Carbon Dioxide Level 26, Anion Gap 8, Blood Urea Nitrogen 8, Creatinine 0.8, Estimat Glomerular Filtration Rate > 60, Glucose Level 88, Calcium Level 8.6, White Blood Count 6.2 , Red Blood Count 4.03L, Hemoglobin 12.3, Hematocrit 36.4L, Mean Corpuscular Volume 90, Mean Corpuscular Hemoglobin 30.7, Mean Corpuscular Hemoglobin Concent 33.9, Red Cell Distribution Width 11.9, Platelet Count 248, Mean Platelet Volume 6.4L, Neutrophils (%) (Auto) 48.7, Lymphocytes (%) (Auto) 38.1, Monocytes (%) (Auto) 9.3, Eosinophils (%) (Auto) 2.0, Basophils (%) (Auto) 1.9, Hemoglobin A1c 5.5, Uric Acid 3.0, Phosphorus Level 4.0, Magnesium Level 2.2, Iron Level 63, Total Iron Binding Capacity 273, Percent Iron Saturation 23, Unsaturated Iron Binding 210, Ferritin 44, Total Bilirubin 0.5, Aspartate Amino Transf (AST/SGOT) 12L, Alanine Aminotransferase (ALT/SGPT) 11L, Alkaline Phosphatase 32L, C-Reactive Protein, Quantitative < 0.4, Total Protein 7.1, Albumin 4.0, Globulin 3.1, Albumin/Globulin Ratio 1.3, Triglycerides Level 22L, Cholesterol Level 151, LDL Cholesterol 78, HDL Cholesterol 66H, Cholesterol/HDL Ratio 2.3L, Vitamin B12 Level 648, Folate 18.6 Height (Feet): 5 Height (Inches): 6.00 Weight (Pounds): 125 Bruce Scott MD Aug 07, 2019 11:12
--- NOTE | 2019-08-07 11:36 | Nephrology Progress Note ---
Assessment/Plan Problem List: (1) Hypokalemia (2) Electrolyte imbalance Assessment Hyponatremia, serum sodium of 117 on admission, now corrected on saline infusion. Low phosphorus, low magnesium History of psychiatric disease schizophrenia on Abilify as per patient Patient thinks that she is diabetic and also have high cholesterol Plan Discussed with RN, patient been refusing medications. Refused Abilify Colace and Pepcid. Today's labs checked. No evidence of diabetes mellitus or high lipid panel as the patient was suspecting! Stable from renal standpoint of view. Continue per PMD and psychiatry. Discussed with Dr. Scott Subjective ROS Limited/Unobtainable: No Constitutional: Reports: other - Wants to be discharged! Objective Objective Last 24 Hour Vital Signs Date Time Temp Pulse Resp B/P (MAP) Pulse Ox O2 Delivery O2 Flow Rate FiO2 08/07/19 08:00 98.0 80 20 103/73 (83) 97 08/07/19 04:00 98.3 80 17 102/67 (79) 96 08/07/19 00:00 99.5 81 18 126/79 (95) 97 08/06/19 21:00 Room Air 08/06/19 20:00 99.2 84 18 99/62 (74) 96 08/06/19 17:15 Room Air 08/06/19 16:00 98.5 80 19 111/71 (84) 97 08/06/19 12:00 98.2 69 20 99/62 (74) 98 Intake and Output 08/06/19 08/07/19 19:00 07:00 Intake Total 2760 ml 720 ml Balance 2760 ml 720 ml Intake Oral 2560 ml 720 ml IV Total 200 ml # Voids 4 2 # Bowel Movements 2 1 Laboratory Tests 08/06/19 13:54: Sodium Level 140, Potassium Level 4.6, Chloride Level 106, Carbon Dioxide Level 27, Anion Gap 7, Blood Urea Nitrogen 6L, Creatinine 0.8, Estimat Glomerular Filtration Rate > 60, Glucose Level 63L, Calcium Level 8.4L 08/07/19 05:10: Sodium Level 136, Potassium Level 4.0, Chloride Level 102, Carbon Dioxide Level 26, Anion Gap 8, Blood Urea Nitrogen 8, Creatinine 0.8, Estimat Glomerular Filtration Rate > 60, Glucose Level 88, Calcium Level 8.6, White Blood Count 6.2 , Red Blood Count 4.03L, Hemoglobin 12.3, Hematocrit 36.4L, Mean Corpuscular Volume 90, Mean Corpuscular Hemoglobin 30.7, Mean Corpuscular Hemoglobin Concent 33.9, Red Cell Distribution Width 11.9, Platelet Count 248, Mean Platelet Volume 6.4L, Neutrophils (%) (Auto) 48.7, Lymphocytes (%) (Auto) 38.1, Monocytes (%) (Auto) 9.3, Eosinophils (%) (Auto) 2.0, Basophils (%) (Auto) 1.9, Hemoglobin A1c 5.5, Uric Acid 3.0, Phosphorus Level 4.0, Magnesium Level 2.2, Iron Level 63, Total Iron Binding Capacity 273, Percent Iron Saturation 23, Unsaturated Iron Binding 210, Ferritin 44, Total Bilirubin 0.5, Aspartate Amino Transf (AST/SGOT) 12L, Alanine Aminotransferase (ALT/SGPT) 11L, Alkaline Phosphatase 32L, C-Reactive Protein, Quantitative < 0.4, Total Protein 7.1, Albumin 4.0, Globulin 3.1, Albumin/Globulin Ratio 1.3, Triglycerides Level 22L, Cholesterol Level 151, LDL Cholesterol 78, HDL Cholesterol 66H, Cholesterol/HDL Ratio 2.3L, Vitamin B12 Level 648, Folate 18.6 Height (Feet): 5 Height (Inches): 6.00 Weight (Pounds): 125 General Appearance: no apparent distress Cardiovascular: normal rate Respiratory/Chest: lungs clear Abdomen: soft Liam Sotver MD Aug 07, 2019 11:36
[2019-08-07 12:00] VITALS: BP 95/64
--- NOTE | 2019-08-08 08:31 | Consultation ---
DATE OF CONSULTATION: 08/06/2019 HISTORY OF PRESENT ILLNESS: This is a 28-year-old female with a history of psychotic disorder and anxiety who has been admitted to the hospital due to fatigue as well as dizziness. However, the patient has been drinking water to decrease her cholesterol level. She stated that she has been eating excessive eggs and she believes the cholesterol is high. Therefore, she has been drinking to lower her cholesterol. The patient states that she eats two eggs every other day. The patient was anxious and a psychiatrist . The patient is paranoid and delusional. She is reluctant to take antipsychotics. Towards the end of evaluation, the patient stated that she has taken Abilify in the past, and she is open to take only Abilify. She was reluctant for her medications to be changed. PAST PSYCHIATRIC HISTORY: She denies any psychiatric hospitalization. She has a psychiatric history of Abilify and Xanax. PAST MEDICAL HISTORY: Significant for history of UTI. ALLERGIES: No known drug allergies. SUBSTANCE ABUSE HISTORY: No known history of illicit drug use or alcohol. MENTAL STATUS EXAMINATION: The patient is alert and oriented to time, self and situation. Mood is anxious. Affect is constricted. Congruent with mood. Thought process is concrete. Thought content, delusional thoughts. No suicidal or homicidal ideation. Cognition is intact. Insight and judgment are fair. ASSESSMENT: Fletcher I Psychotic disorder, not otherwise specified. Rule out schizophrenia. Anxiety disorder. Fletcher II Deferred. Fletcher III Hyponatremia. Fletcher IV Low to moderate. Fletcher V 50. PLAN: 1. Abilify 10 mg in the morning. 2. Discussed with the nurse. Oskar Hutchison M.D. DR: GIORGIO JOB#: [id number] CC:
--- NOTE | 2019-08-08 08:47 | Discharge Summary ---
Discharge Summary Discharge Summary _ DATE OF ADMISSION: 08/06/2019 DATE OF DISCHARGE: 08/07/2019 DISCHARGED BY: Dr. Scott REASON FOR ADMISSION: 28 years old female with past medical history of anxiety, presented to emergency room with multiply complaints. Patient was worried that she had new onset of diabetes or may have a high cholesterol level. She said she eats 2 eggs every day and was concerned that it may be too much. Patient also was concerned that she has high level of vitamin A. Originally she complained of tremulousness in her upper and lower extremity. No fever or chills. No cough, vomiting or diarrhea. Patient did not take vitamin A supplements. Patient had no history of diabetes of hypercholesterolemia. Patient reported family history of both and therefore was concerned. Patient denied excessive caffeine intake. Patient apparently had some sort of psychiatric disorder and was on Abilify. Patient denied drug , alcohol or tobacco use , no stimulant use. Upon evaluation vital signs were stable. Laboratory work-up revealed no leukocytosis, hemoglobin 11.5 ,hematocrit 32.5, platelet count 216. Urinalysis revealed +3 ketones , no pyuria. Sodium 117. Potassium 3.2. BUN 3, creatinine 0.7. Glucose 124. Urine toxicology screen was negative. EKG revealed sinus rhythm, no acute ischemic changes. On further questioning it was found that patient drinks excess amount of water daily. Patient started on the IV hydration with sodium for sodium correction and admitted for further management CONSULTANTS: psychiatrist. Dr Hutchison [facility]: Patient admitted and started on the IV hydration with saline. [facility] Receptionist followed. Patient demonstrated electrolytes imbalances: low phosphorus, low magnesium and low potassium. All electrolytes corrected as per chemical equipment controller recommendations. Sodium up to 136 upon discharge. Lipid panel was stable. Hemoglobin A1c 5.5. TSH within normal limits. Urine test was negative. Anemia work-up revealed stable iron. DVT prophylaxis provided. Patient clinically stabilized and was ready for discharge home. Due to rapid and unexpected improvement in patient condition, patient was discharged in 1 day. FINAL DIAGNOSES: Acute metabolic encephalopathy-resolved Acute hyponatremia -resolved Possible psychogenic polydipsia Hypokalemia Psychotic disorder Possible schizophrenia Anxiety disorder DISCHARGE MEDICATIONS: See Medication Reconciliation list. DISCHARGE INSTRUCTIONS: Patient was discharged home. Follow-up with a primary care provider in 1 week. I have been assigned to dictate discharge summary for this account. I was not involved in the patient's management. Soraida Tavares NP Aug 08, 2019 08:47
== END 2019-08-07 14:48 | disposition home or self-care (01) | DRG 640 ==
LOC: EMR 23:25 → 3E 08-06 01:45 → EDBEDREQ 08-06 02:42
DX: E87.1 Hypo-osmolality and hyponatremia (principal); G93.41 Metabolic encephalopathy; F20.9 Schizophrenia, unspecified; E87.6 Hypokalemia; R63.1 Polydipsia; F09 Unspecified mental disorder due to known physiological condition; R31.9 Hematuria, unspecified; E83.39 Other disorders of phosphorus metabolism; E83.42 Hypomagnesemia; E11.9 Type 2 diabetes mellitus without complications; F41.9 Anxiety disorder, unspecified
CPT/HCPCS: 36415; 80048; 80053; 80061; 80307; 81003; 82533; 82570; 82607; 82728; 82746; 82977; 83036; 83540; 83550; 83735; 83930; 83935; 84100; 84105; 84300; 84443; 84550; 84703; 85025; 86140; 93005; 96360; 99285; J7030; J8499